=== PATIENT | male | born 1940 | race Caucasian/White ===

== ENCOUNTER → 2017-05-14 | Outpatient (CLI) | payer OTHER, BC ==
[~2017-05-14] VITALS: Ht 182.9 cm; Wt 88.8 kg
[~2017-05-14] MED LIST: ACCUPRIL40 MG PO; ACETAMINOPHEN500 MG PO; ADULT LOW DOSE81 MG PO; ALDACTONE25 MG PO; ASPIR 8181 MG PO; ASPIRIN EC325 M1 PO; ASPIRIN325 PO; ATORVASTATIN CA40 MG PO; BACLOFEN20 MG PO; CEFTIN500 MG PO; CIPRO500 MG PO; CLEOCIN HCL300 MG PO; CLONAZEPAM 0.50.5 M1 PO; CLONAZEPAM 1 MG1 M1 PO; COLACE100 MG PO; COREG3.125 MG PO; DEEP SEA NASAL44 M1 NS; DEMADEX20 MG PO; DILAUDID 2 MG TA2 MG PO; DILAUDID 4 MG TA4 M1 PO; DOXYCYCLINE 10100 MG PO; EFFIENT10 MG PO; ENTRESTO 24 MG1 EACH PO; FLAXSEED OIL1000 MG PO; FLOMAX0.4 MG PO; FOLGARD TABLET1 EAC1 PO; GLUCOPHAGE1000 MG PO; HUMALOG100 UNIT/2; HYDROCODONE-AP1 EAC6 PO; KLOR-CON 1010 MEQ PO; LACTINEX CHEWA1 EACH PO; LASIX 40 MG TAB40 M2 PO; LEVAQUIN 500 M500 M2 PO; LEVEMIR SUBQ; LEVSIN0.125 MG PO; LISINOPRIL10 MG PO; LORTAB 10 MG-3473 ML PO; METHADONE HCL 110 M1; METHADONE HCL 110 M1 PO; METHADONE HCL5 MG PO; MIRALAX17 G1; MIRALAX17 GM PO; MUCINEX TA600 MG/TA2 PO; NITROGLYCERIN0.4 MG SUBLING; NORVASC5 MG PO; NUCYNTA75 MG PO; OPANA10 MG PO; PEPCID20 MG PO; PERCODAN TABLE1 EACH PO; PRILOSEC40 MG PO; PROTONIX40 M4 PO; QUESTRAN PACKET4 GM PO; QUINAPRIL 20 MG20 M1 PO; QUINAPRIL 20 MG20 MG PO; QUINU10 PD PO; SIMVASTATIN40 MG PO; TESSALON PERLE100 M1 PO; TOUJEO SOL300 UNIT/1 SQ; TYLENOL325 MG PO; URSO FORTE500 M1 PO; URSO FORTE500 MG PO; VALIUM5 MG PO; VITAMIN D1000 UNI1 PO; VITAMIN D31000 UNI2 PO; VITAMIN D3400 UNI1 PO; VITAMIN E400 UNIT; ZINC CHELATE50 MG PO; ZOCOR 20 MG TAB20 M1 PO; [UNRECOGNIZED DRUG - OTHER]
[2017-05-14 07:44] VITALS: BP 158/85
== END | disposition home or self-care (01) ==
LOC: PAIN 06:45
DX: M54.16 Radiculopathy, lumbar region (principal); G89.29 Other chronic pain; I21.4 Non-ST elevation (NSTEMI) myocardial infarction; Z88.8 Allergy status to other drugs, medicaments and biological substances; Z79.82 Long term (current) use of aspirin; Z79.4 Long term (current) use of insulin; Z79.899 Other long term (current) drug therapy; Z98.890 Other specified postprocedural states; Z87.891 Personal history of nicotine dependence

== ENCOUNTER → 2017-05-28 | Outpatient (CLI) | payer OTHER, BC | LOC: RAD 14:13 | DX: J98.11 Atelectasis (principal); R91.8 Other nonspecific abnormal finding of lung field ==

== ENCOUNTER → 2017-06-02 | Outpatient (CLI) | payer OTHER, BC | LOC: RAD | DX: S62.316A Displaced fracture of base of fifth metacarpal bone, right hand, initial encounter for closed fracture (principal); R07.9 Chest pain, unspecified; X58.XXXA Exposure to other specified factors, initial encounter; Y93.89 Activity, other specified; Y92.89 Other specified places as the place of occurrence of the external cause; Y99.8 Other external cause status ==

== ENCOUNTER → 2017-07-15 | Outpatient (CLI) | payer OTHER, BC ==
[~2017-07-15] VITALS: Ht 182.9 cm; Wt 86.5 kg
[~2017-07-15] MED LIST changes: +PERCOCET 10-321 EAC1 PO; +TYLENOL PM EX-1 EACH PO
--- NOTE | ~2017-07-15 | HPC ---
[facility] [place] [address] PAIN MANAGEMENT CONSULTATION Name: ASHLEY HURST Room #: [facility]ITAL[facility]ov[facility]#: [id number] Admission: 07/15/17 Attend Phys: Yosvany Chandra DO Discharge: Date of : 42 Report #: [id number] THIS REPORT FOR: //name// CC: Yosvany Wisdom DATE OF SERVICE: 07/15/2017 CHIEF COMPLAINT: Low back pain, bilateral lower extremity pain with paresthesias. HISTORY OF PRESENT ILLNESS: As you know, the patient is a very pleasant 77-year-old male who has returned today in followup visit with increasing low back pain, bilateral lower extremity pain with weakness and paresthesias. The patient has been trying to stay ahead of this pain with pain medication. He has escalated his dose well beyond the CDCs recommended guidelines of 90 morphine equivalents a day. Despite this increase in medication, he is not functioning better. He has returned today to discuss options for treatment. He indicates today pain at a level of 10/10. He has returned to discuss options for treatment in hopes of improving his lumbar radicular symptoms secondary to severe and progressively worsening spinal stenosis. ALLERGIES: NONSTEROIDAL ANTI-INFLAMMATORY, SUCCINYLCHOLINE. CURRENT MEDICATIONS: Amlodipine, Lactinex, aspirin, furosemide, docusate sodium, atorvastatin, methadone, Percocet, metformin, and zinc. SOCIAL HISTORY: The patient denies tobacco, alcohol, IV or illicit drug use. 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 He is working, not receiving workmen's compensation, unaccompanied today. IMAGING: No new imaging available. PHYSICAL EXAMINATION: GENERAL: Well-developed, well-nourished, well-hydrated, 77-year-old male. He appears his stated age. He is placing pain score 10/10. HEENT: Normocephalic, atraumatic. Pupils equal, round, reactive to light. Extraocular muscles are intact. EXTREMITIES: Show no clubbing, no cyanosis, no edema. MUSCULOSKELETAL: Pain is elicited with standing from seated position. Active and passive range of motion of the lower back causes intensification of pain. Seated straight leg raising negative. Supine straight leg raising positive. Fabere's test negative. Modified Gaenslen's positive for axial low back pain. Ankle clonus negative. Babinski is negative. [address] [address] PAIN MANAGEMENT CONSULTATION Name: ASHLEY HURST Room #: REG SUDHAKAR Mejia#: [id number] Admission: 07/15/17 Attend Phys: Yosvany Chandra DO Discharge: Date of : 42 Report #: [id number] ASSESSMENT: 1. Symptomatic lumbar radiculopathy. 2. Spinal stenosis of the lumbar spine. 3. Displacement of lumbar intervertebral disk with radiculopathy. 4. Lumbosacral spondylosis with radiculopathy. 5. Chronic intractable pain. PLAN: 1. The patient has returned today in followup visit. We have discussed options for treatment. Unfortunately, he has escalated his medications quite significantly and yet has noticed no improvement in symptoms. He is well over the CDCs recommended guidelines from an opioid standpoint. Unfortunately, we cannot increase his medication further. We discussed with the patient the options for treatment that remain, these would be changing medications in hopes of improving pain by rotating various agents and initiating a consistent ____ neuropathic medication, though the patient had some side effects with these in the past. We discussed spinal cord stimulator therapy as an option and surgical decompression. After reviewing risks and benefits of all proposed treatment options, the patient requested an epidural injection followed by referrals for neurosurgery. 2. The patient was advised of risks and benefits of a lumbar epidural injection. These risks include but are not necessarily limited to bleeding, bruising, infection, worsening pain, no relief of pain and also risk of temporary or permanent muscle weakness, temporary or permanent nerve damage, possible paralysis and . The patient states he understood and wished to proceed. 3. I do recommend the patient be evaluated further by Neurosurgery. I do not feel that the patient will be able to continue with conservative treatment options. Certainly, a spinal cord stimulator would provide some improvement in symptoms for a temporary amount of time, though given the increasing weakness, numbness, and tingling that the patient is experiencing in lower extremities, I believe he has had a progression of his spinal stenosis and will ultimately need to undergo decompression. We would recommend a more definitive treatment option in this patient's case as I believe that spinal cord stimulators will only be a temporizing in their efficacy. He will ultimately need decompression if he wishes to have improvement in his symptoms. I did discuss with the patient today that pain resolution is not the reason for the surgery, it is to increase his continuing to utilize his lower extremities. He will consider his options. 4. We made no changes in the patient's medications. He will continue his current medical therapy. 5. We will see the patient back in followup visit for possible repeat epidural injection, assuming efficacy. PROCEDURE NOTE DESCRIPTION OF PROCEDURE: Lumbar epidural steroid injection under fluoroscopic [facility] [address] [place] [address] PAIN MANAGEMENT CONSULTATION Name: ASHLEY HURST Room #: REG SUDHAKAR Mejia#: [id number] Admission: 07/15/17 Attend Phys: Yosvany Chandra DO Discharge: Date of : 42 Report #: [id number] guidance. After obtaining written consent, the patient was taken back to fluoroscopy suite, placed in prone position with pillow under abdomen to decrease lumbar lordosis. Skin overlying lumbosacral area prepped and draped in aseptic fashion. Lumbar intervertebral spaces were identified by AP fluoroscopy. Skin and subcutaneous tissue overlying target site of injection was anesthetized with 3 mL of 1% lidocaine. A 20-gauge 3-1/2 inch Tuohy needle advanced under fluoroscopic guidance towards the epidural space using midline approach. Epidural space identified using loss of resistance to air technique. After negative aspiration for heme or cerebrospinal fluid, 1 mL of Isovue was injected. Lumbar epidurogram was confirmed using both AP and lateral fluoroscopy. After negative aspiration for heme or cerebrospinal fluid, 5 mL of a solution containing 2 mL 40 mg per mL, 80 mg total triamcinolone, 3 mL lidocaine 1% injected slowly. Needle retracted custodial, needle tract flushed with 3 mL 1% lidocaine. Needle removed. Sterile bandage placed over injection site. No new motor deficits present in lower extremity following the procedure. The patient tolerated the procedure well, carefully escorted to the recovery in stable condition. No apparent complication. After meeting discharge criteria, the patient discharged home. <ELECTRONICALLY SIGNED> By: Yosvany Chandra DO 07/22/17 1136 [id number] Yosvany Chandra, DO /nt
[2017-07-15 14:52] VITALS: BP 137/65
== END | disposition home or self-care (01) ==
LOC: PAIN 07:17
DX: M51.16 Intervertebral disc disorders with radiculopathy, lumbar region (principal); M48.06 Spinal stenosis, lumbar region; M47.27 Other spondylosis with radiculopathy, lumbosacral region; G89.29 Other chronic pain; Z88.8 Allergy status to other drugs, medicaments and biological substances; Z79.899 Other long term (current) drug therapy; Z87.891 Personal history of nicotine dependence

== ENCOUNTER → 2017-07-17 | Outpatient (CLI) | payer OTHER, BC | LOC: MRI 14:26 | DX: M47.26 Other spondylosis with radiculopathy, lumbar region (principal); M48.06 Spinal stenosis, lumbar region; G03.1 Chronic meningitis ==

== ENCOUNTER → 2017-12-10 | Outpatient (CLI) | payer OTHER, BC ==
[~2017-12-10] VITALS: Ht 182.9 cm; Wt 88.0 kg
--- NOTE | ~2017-12-10 | HPC ---
[facility] [address] [address] PAIN MANAGEMENT CONSULTATION Name: ASHLEY HURST SUZAN Room #: REG SUDHAKAR JohnsonJeovanny#: [id number] Admission: 12/10/17 Attend Phys: Yosvany Chandra DO Discharge: Date of : 42 Report #: [id number] THIS REPORT FOR: //name// CC: Yosvany Wisdom MD DATE OF SERVICE: 12/10/2017 REFERRING PHYSICIAN: Denis Wisdom MD CHIEF COMPLAINT: Low back pain, bilateral lower extremity pain and paresthesias. HISTORY OF PRESENT ILLNESS: As you know, the patient is a very pleasant 77-year-old male who returns today in followup visit for medication management to address low back pain, bilateral lower extremity pain with paresthesias. The patient continues to suffer from lumbar radicular symptoms secondary to progressively worsening spinal stenosis. He returns today in followup visit requesting refill on medications stating medications are working beneficially for pain control. He is requesting refills of methadone 10 mg for which he is taking 1 tab 3 times a day as needed for pain control. He feels medications are working beneficially, denies side effects with their use. He returns today requesting the refills to be provided for the next 3 months. ALLERGIES: NONSTEROIDAL ANTI-INFLAMMATORY and SUCCINYLCHOLINE. CURRENT MEDICATIONS: Amlodipine, Lactinex, aspirin, furosemide, docusate sodium, atorvastatin, methadone, Percocet, metformin and zinc. SOCIAL HISTORY: The patient denies tobacco, alcohol, IV or illicit drug use. 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 He is working, not receiving workmen's compensation, unaccompanied today. IMAGING: No new imaging available. PQRS: History of osteoarthritis. He has no rheumatoid arthritis. The patient does not use a walker. He is not a fall risk. He has not fallen in the last 3 months. He does not need assistance for standing and walking. The patient is not on any blood thinners. He has a history of hypertension for which he has been treated medically. He has been on opioid therapy longer than 6 weeks, we have an opioid contract signed on 12/10/2017, he is at low risk for opioid abuse. His pain intensity day 04/23. PHYSICAL EXAMINATION: VITAL SIGNS: Blood pressure 163/71, pulse 70, respiratory rate 14 and [facility] [address] [place] [address] PAIN MANAGEMENT CONSULTATION Name: ASHLEY HURST SUZAN Room #: REG [facility] MCoral.#: [id number] Admission: 12/10/17 Attend Phys: Yosvany Chandra DO Discharge: Date of : 42 Report #: [id number] unlabored, the patient is 95% on room air, height 6 feet tall, weight 194 pounds, and BMI calculated 26.3. GENERAL: Well-developed, well-nourished, well-hydrated 77-year-old male, he appears his stated age, he is placing current pain score approximately 6-7/10. HEENT: Normocephalic, atraumatic. Pupils are equal, round, and reactive to light. Extraocular muscles are intact. Sclerae are nonicteric without injection. NEUROLOGIC: Cranial nerves 2-12 are grossly intact. Speech is fluent. The patient deemed a good historian. LUNGS: Clear. No wheeze, rhonchi, or rales. CARDIOVASCULAR: Regular. No appreciable gallop or rub. ABDOMEN: Soft, nontender, and nondistended. EXTREMITIES: Show no clubbing, no cyanosis, and no edema. MUSCULOSKELETAL: Lower extremity strength appears equal and symmetrical 5/5. He is intact to light touch from L1 through S2 dermatomes. Seated straight leg raising negative. Supine straight leg raising remains mildly positive. Jayleen's test is negative. Muscle bulk and tone equal and symmetrical in lower extremities. ASSESSMENT: 1. Symptomatic lumbar radiculopathy. 2. Spinal stenosis of lumbar spine. 3. Displacement of lumbar intervertebral disk with radiculopathy. 4. Lumbosacral spondylosis with radiculopathy. 5. Chronic intractable pain. PLAN: 1. The patient returns today in followup visit for medication management. The patient feels medications are working beneficially for pain control. The patient denies any specific side effects to his treatment at this time. These would include somnolence, decrease mental acuity, disorientation, or confusion. He denies any chronic constipation. He returns for requesting refill on his methadone therapy. 2. The patient was provided a prescription of methadone 10 mg dose 1 tab p.o. t.i.d., I have given the patient #90 tablets, release dates of today, 4 weeks from today, 8 weeks from today. The patient is to take the medication for baseline pain control. He does find efficacy with its use and wishes to continue the therapy. 3. We will see the patient back in followup visit in 3 months for medication management. <ELECTRONICALLY SIGNED> By: Yosvany Chandra DO 12/17/17901 9 9 Yosvany Chandra DO /nt
[2017-12-10 07:54] VITALS: BP 163/71; BP 172/71
== END ==
LOC: PAIN 06:47
DX: M54.16 Radiculopathy, lumbar region (principal); M48.061 Spinal stenosis, lumbar region without neurogenic claudication; M47.897 Other spondylosis, lumbosacral region; G89.29 Other chronic pain; Z88.6 Allergy status to analgesic agent; Z88.8 Allergy status to other drugs, medicaments and biological substances

== ENCOUNTER → 2018-12-08 | Outpatient (CLI) | payer OTHER ==
[~2018-12-08] VITALS: Ht 182.9 cm; Wt 96.6 kg
[2018-12-08 14:30] VITALS: BP 156/64
--- NOTE | 2018-12-08 14:35 | NUR ---
Pain Clinic Assessment: 1. History of Osteoarthritis: Left Lower Extremity Right Lower Extremity History of Rheumatoid Arthritis: NO 2. Height: 6 ft. 0 in. 182.9 cm. Weight: 213.0 lb. oz. 96.616 kg. Patient's BMI: 28.9 3. Vital Signs: BP: 156/64 Pulse: 66 Resp: 16 Temp: 02 Sat: ECG Mon: 4. Pain Intensity: 7 5. Fall Risk: Dizziness: N Needs help standing or walking: N Fallen in the last 3 months: N Fall risk comments: 6. Patient on Blood Thinner: None 7. History of Hypertension: Y 8. Opioid Therapy greater than 6 weeks: N Opiate Contract Signed: 12/10/17 9. Risk Assessment Tool Provided: LOW RISK 10. Functional Assessment Tool: 11. Recreational Drug Use: Never Drug Type: Tobacco Use: Former Smoker Tobacco Type: Amount or Packs/day: How Many Years: Alcohol Use: No Frequency: Quant:
--- NOTE | 2018-12-10 07:36 | HPC ---
[facility] [address] [address] PAIN MANAGEMENT CONSULTATION Name: ARISASHLEY SUZAN Room #: REG SUDHAKAR Mejia#: [id number] Admission: 12/08/18 Attend Phys: Cherry Soliz Discharge: Date of : 42 Report #: [id number] THIS REPORT FOR: //name// CC: Cherry Charlese [facility] DATE OF SERVICE: 12/08/2018 CHIEF COMPLAINT: Low back pain and left lower extremity pain and paresthesias. HISTORY OF PRESENT ILLNESS: This is a very pleasant 78-year-old gentleman who returns to the pain clinic for followup visit for his medication management to address his low back pain, left knee pain, right hip pain. He tells me that his pain score is an average of 7, worse with activity, bending, walking, standing, but better when he takes his medicine or resting at home. He tells me that after his last back surgery in August, he was 100% pain free, but that did not last very long and his back is hurting again. He tells me that he also needs a hip replacement, but he wants to wait until he no longer works. He denies any constipation or daytime sleepiness. 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 ALLERGIES: NSAIDS. CURRENT LIST OF MEDICATION: Methadone 10 mg 3 times a day, vitamin D3 daily, insulin 50 units subcutaneous at bedtime, Norvasc 5 mg daily, aspirin 81 mg daily, Lasix 40 mg daily, Colace as needed, Geoffrey Forte 500 mg twice a day, atorvastatin 40 mg daily, zinc 50 mg twice a day, metformin 1000 mg twice a day. PQRS: 1. The patient has a known history of low back osteoarthritis and bilateral lower extremity arthritis. He is not being treated for rheumatoid arthritis. 2. Height is 6 feet 0, weight is 213, BMI is 28.9. 3. Vital signs: Blood pressure 156/64, pulse is 66, respirations 16, oxygen sat is 100%. 4. Pain score 7/10. 5. Fall risk: Denies dizziness, does not help walking or standing. He has not fallen in the last 3 months. 6. The patient denies any blood thinners, does take medicine for hypertension. 7. Opioid therapy is greater than 6 weeks, therefore an opioid signed contract is on the chart. 8. His risk assessment tool is low. His functional assessment is 39/70. 9. He denies recreational drug use. He is a former smoker and he does not drink alcohol. We did check the prescription monitoring system. The patient is filling appropriately for his opioids from Dr. Chandra. He does take a benzodiazepine that we have known about and filling appropriately for all his medications. He tells me he safeguards his medicines. We will check a drug [address] [address] PAIN MANAGEMENT CONSULTATION Name: ASHLEY HURST Room #: REG Cedric Mejia#: [id number] Admission: 12/08/18 Attend Phys: Cherry Soliz Discharge: Date of : 42 Report #: [id number] screen on the next visit. PHYSICAL EXAMINATION: GENERAL: Well-developed, well-nourished, well-hydrated 78-year-old gentleman who appears his stated age, placing his pain score at 7/10 today. HEENT: Normocephalic and atraumatic. Pupils equal, round and reactive to light. Extraocular muscles are intact. EXTREMITIES: No clubbing, no cyanosis, no edema. MUSCULOSKELETAL: There is no crepitus with movement of his knee, does complain of some tenderness though with ambulation. He does walk with an antalgic gait. Seated leg raising is negative. Lower muscle strength judged to be 5/5 in bilateral major muscle groups. ASSESSMENT: 1. Left knee pain. 2. Chronic lumbar radicular pain. 3. 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 4. Complex medical management under terms of written opioid agreement. PLAN: 1. The patient returned to the pain clinic today to discuss treatment options and followup for his medication management. He tells me that his methadone 10 mg 3 times a day is very helpful in controlling his pain and would like refills today. He tells me he has had knee and hip injections recently, though he got very limited response for about a week to 10 days for both injections. He knows that he needs to have them replaced, but continues to work and does not want to do that at this time. He tells me that his medications are helpful in getting him through his day at work and goes home and rests and he does quite well. 2. Script given for methadone 10 mg 3 times a day, #90, to release today, 4 and 8 week. 3. The patient will follow up in 3 months' time. At that time, we will do a drug screen on the patient. The patient seen in collaboration today with Dr. Yosvany Chandra. <ELECTRONICALLY SIGNED> By: Cherry Soliz 12/10/18 0736 [id number] Cherry Soliz /rolando
== END ==
LOC: PAIN 14:02
DX: M17.0 Bilateral primary osteoarthritis of knee (principal); M54.16 Radiculopathy, lumbar region; M16.0 Bilateral primary osteoarthritis of hip; Z79.891 Long term (current) use of opiate analgesic

== ENCOUNTER → 2019-03-02 | Outpatient (CLI) | payer OTHER ==
[~2019-03-02] VITALS: Ht 182.9 cm; Wt 95.3 kg
[2019-03-02 14:38] VITALS: BP 132/63
--- NOTE | 2019-03-02 14:44 | NUR ---
Pain Clinic Assessment: 1. History of Osteoarthritis: Left Lower Extremity Right Lower Extremity History of Rheumatoid Arthritis: NO 2. Height: 6 ft. 0 in. 182.9 cm. Weight: 210.2 lb. oz. 95.346 kg. Patient's BMI: 28.5 3. Vital Signs: BP: 132/63 Pulse: 65 Resp: 18 Temp: 02 Sat: 97 ECG Mon: 4. Pain Intensity: 5 5. Fall Risk: Dizziness: N Needs help standing or walking: N Fallen in the last 3 months: N Fall risk comments: 6. Patient on Blood Thinner: None 7. History of Hypertension: Y 8. Opioid Therapy greater than 6 weeks: N Opiate Contract Signed: 12/10/17 9. Risk Assessment Tool Provided: LOW RISK 10. Functional Assessment Tool: 11. Recreational Drug Use: Never Drug Type: Tobacco Use: Former Smoker Tobacco Type: Amount or Packs/day: How Many Years: Alcohol Use: No Frequency: Quant:
--- NOTE | 2019-03-03 09:14 | HPC ---
[facility] [address] [place] [address] PAIN MANAGEMENT CONSULTATION Name: ASHLEY HURST SUZAN Room #: REG SUDHAKAR Roberto#: [id number] Admission: 03/02/19 ������������������ Attend Phys: Yosvany Chandra DO Discharge: ������������������ Date of : 44 Report #: [id number] THIS REPORT FOR: //name// CC: Yosvany Wisdom MD DATE OF SERVICE: 03/02/2019 CHIEF COMPLAINT: Low back pain, left lower extremity pain and paresthesias. 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 The patient indicates a pain level of 5/10. States that the methadone taken as directed provides good and prolonged benefit. He returns, requesting refill of the medication. The patient states that he is planning to move from the [facility] to [facility], but is yet to make full and consistent plans. He has returned, requesting refill on medications with the understanding that ultimately he will be transferring his care to the [facility]. He indicates no side effects to the medication. Denies somnolence, decrease in mental acuity, disorientation, confusion or mental slowing. He returns, requesting refill of medications at this visit. ALLERGIES: NONSTEROIDAL ANTI-INFLAMMATORIES. CURRENT MEDICATIONS: Methadone 10 mg 3 times a day, vitamin D3 1 tab per day, insulin 50 units subcutaneous at bedtime, Norvasc 5 mg per day, aspirin 81 mg per day, Lasix 40 mg per day, Colace 100 mg p.r.n., Geoffrey Forte 500 mg b.i.d., atorvastatin 40 mg per day, zinc 50 mg twice a day, metformin 1000 mg twice a day. SOCIAL HISTORY: The patient denies tobacco, alcohol, IV or illicit drug use. He is working, not receiving workmen's compensation, unaccompanied today. IMAGING: No new imaging available. PQRS: The patient has known osteoarthritic changes of the lumbar spine, bilateral knees and hips. No rheumatoid arthritis. Pain intensity is rated at 5/10. He is not a fall risk, has not had a fall in the last 3 months. He is not on blood thinners. He is treated for hypertension. He is on opioids for an extended period of time, but is a low risk for opioid addiction. He is placing pain impact score 39/70, moderate interference of daily activities secondary to pain. PHYSICAL EXAMINATION: VITAL SIGNS: Blood pressure 132/63, pulse 65, respiratory rate [address] [address] PAIN MANAGEMENT CONSULTATION Name: ASHLEY HURST SUZAN Room #: REG [facility] [id number] Admission: 03/02/19 ������������������ Attend Phys: Yosvany Chandra DO Discharge: ������������������ Date of : 44 Report #: [id number] unlabored. The patient is 97% on room air, height 6 feet tall, weight 210.2 pounds, BMI calculated 28.5. GENERAL: Well-developed, well-nourished, well-hydrated 79-year-old male appearing stated age, pain is rated around 5/10. HEENT: Normocephalic, atraumatic. Pupils equal, round, reactive to light. Extraocular muscles are intact. Sclerae nonicteric without injection. NEUROLOGIC: Cranial nerves 2-12 grossly intact. Speech is fluent. EXTREMITIES: Show no clubbing, no cyanosis, and no edema. MUSCULOSKELETAL: Lower extremity strength appears equal and symmetrical at 5/5, intact to light touch from L1 through S2 dermatomes. Seated straight leg raising negative. Supine straight leg raising positive. Jayleen's test negative. Modified Gaenslen's positive for axial low back pain. Ankle clonus negative. Babinski is negative. ASSESSMENT: 1. Lumbar radiculopathy. 2. Osteoarthritis of the knees. 3. Opioid dependency. 4. Chronic intractable pain. PLAN: 1. The patient returns today in followup visit, requesting refill of medications. He has been appropriate with use of his methadone and has not called for early refills. He is requesting refills to be provided today. He denies side effects of sleepiness, disorientation, confusion, mental slowing or constipation and cannot be treated with [id number] medication. He returns, requesting refills be provided today. The patient does indicate that he is planning to move to the [facility], but does not have immediate plans. If the patient does choose to move to the [facility] and plans have been established, we will need to adjust medications in preparation for that move. We will do this at followup visit. 2. We reviewed the fact that opiate medications are being used to provide analgesia adequate to support activities of daily living, not attempting to achieve a specific pain score on the 0-10 Visual Analog Scale. The current opiate medications are providing sufficient analgesia to allow the patient to participate in activities of daily living. The patient is not exhibiting any aberrant behavior suggestive of drug diversion. The patient is not having any adverse reactions to medications. The patient is not suffering from daytime somnolence or mental acuity changes. The patient is managing opiate-induced constipation with appropriate quvz-hjx-mwipoee agents and dietary considerations. The patient was counseled on concern for caution with operating a motor vehicle while using opiate medications. A physical exam was performed and the patient's functional status was evaluated. All patients with back pain were advised against the bed rest greater than 4 days and were advised to return to normal activities. Pain score assessment was [facility] [address] [place] [address] PAIN MANAGEMENT CONSULTATION Name: ASHLEY HURST SUZAN Room #: REG [facility]#: [id number] Admission: 03/02/19 ������������������ Attend Phys: Yosvany Chandra DO Discharge: ������������������ Date of : 42 Report #: [id number] noted and the treatment plan was reviewed with the patient. All current medications, both prescribed and OTC were reviewed and reconciled on the electronic medical record. Tobacco screening was accomplished and smoking cessation was advised when indicated. BMI was noted and diet/exercise modification was recommended for all patients following outside normal parameters. I reviewed with the patient today their responsibilities to safeguard prescription medications, reviewed their responsibility to utilize medications only as prescribed by the physician. They are to seek and receive pain medications only from 1 physician group ( [facility]). They are to use 1 pharmacy and keep the clinic informed if they change pharmacies. Their responsibilities include making followup visits in a timely fashion and to avoid abrupt discontinuation of medication usage. Their responsibilities further include bringing their medications (bottles from the pharmacy with residual pills) to the visit for possible confirmation of pill counts and the patient understands it is their responsibility to submit to random drug screens to ensure both that the medications prescribed are present, and that no other controlled substances are present. All prescriptions provided today were generated electronically. 3. The patient was provided a prescription of methadone 10 mg dose 1 tab p.o. t.i.d., given the patient #90 tablets, releasing today, 4 weeks from today and 8 weeks from today, 3 months' worth of medication. The patient was advised if he is going to move in the next couple of months, he will need to contact our clinic to make adjustments in medication to address the move and provide enough medication, so he can find a physician in the [facility] area to take over medication management. ��������������������������������������������� <ELECTRONICALLY SIGNED> ���������������������������������������� By: Yosvany Chandra DO ��������������������������������������������� 03/03/19 0914 1702 [id number] Yosvany Chandra DO /nt
== END ==
LOC: PAIN 06:59
DX: M54.16 Radiculopathy, lumbar region (principal); M17.0 Bilateral primary osteoarthritis of knee; G89.4 Chronic pain syndrome; F11.20 Opioid dependence, uncomplicated; Z79.899 Other long term (current) drug therapy